=== PATIENT | male | born 1945 | race African-American/Black ===

== ENCOUNTER 2017-10-31 11:59 | Emergency (ER) | payer MEDICARE, OTHER ==
[~2017-10-31] VITALS: Ht 175.3 cm; Wt 77.0 kg
[2017-10-31] MEDS ORDERED: ALBUTEROL (0.083%) 2.5MG/3ML NEB HHN STA (14:43)
[2017-10-31 16:00] VITALS: BP 132/82
== END 2017-10-31 16:13 | disposition home or self-care (01) ==
LOC: ER 11:59
DX: J20.9 Acute bronchitis, unspecified (principal); E78.00 Pure hypercholesterolemia, unspecified; N40.0 Benign prostatic hyperplasia without lower urinary tract symptoms; Z87.891 Personal history of nicotine dependence
CPT/HCPCS: 71045; 94640; 99284; J7611

== ENCOUNTER 2019-06-10 10:03 | Emergency (ER) | payer MEDICARE, OTHER ==
[~2019-06-10] VITALS: Ht 172.7 cm; Wt 78.0 kg
[2019-06-10 10:29] VITALS: BP 128/65
== END 2019-06-10 12:21 | disposition home or self-care (01) ==
LOC: ER 10:03
DX: H66.93 Otitis media, unspecified, bilateral (principal); J06.9 Acute upper respiratory infection, unspecified
CPT/HCPCS: 99283